=== PATIENT | male | born 1935 | race Caucasian/White ===

== ENCOUNTER 2019-12-09 11:39 | Outpatient (CLI) | payer MEDICARE, SELFPAY ==
--- NOTE | ~2019-12-09 | CT_ITS ---
EXAMINATION: CT shoulder LT wo con DATE: 12/09/2019 12:16 INDICATION: Primary osteoarthritis of the left shoulder TECHNIQUE: High resolution computed tomography (CT) of the left shoulder was performed without intrav enous contrast. Additional sagittal and coronal reconstructions were performed. Automated exposure co ntrol and iterative reconstruction technique were employed. The dose-length product was 1076.70 mGy-c m. COMPARISON: None FINDINGS: Alignment is normal. No fracture. There is moderate left acromioclavicular osteoarthritis. Severe lef t glenohumeral osteoarthritis with remodeling and mild loss of bone stock at the posterior half of th e glenoid. There is 15 degree glenoid retroversion. Moderate-sized marginal osteophytes along the inf erior aspect of the humeral head. Small marginal osteophytes about the glenoid. There is additional m ild remodeling at the superomedial aspect of the humeral head. No significant glenohumeral joint effu bennett. No asymmetric muscular atrophy of the left shoulder girdle. No pathologically enlarged left axi llary or hilar lymphadenopathy. Visualized portions of the left lung are clear. Likely benign 7 mm hy podense left thyroid nodule. Bone island at the left lateral mass of C7. Severe cervical and thoracic spondylosis. IMPRESSION: 1. Severe left glenohumeral osteoarthritis with remodeling at the posterior glenoid and superomedial aspect of the humeral head. Reviewed, dictated and finalized at location B. IMPRESSION: 1. Severe left glenohumeral osteoarthritis with remodeling at the posterior gle noid and superomedial aspect of the humeral head.
== END 2019-12-09 11:40 | disposition home or self-care (01) ==
PROVIDERS: PCP Family Medicine; Visit Provider Orthopaedic Surgery
DX: M19.012 Primary osteoarthritis, left shoulder (principal)
CPT/HCPCS: 36415; 73200; 80048; 85025; 87081; 93005

== ENCOUNTER 2019-12-09 13:49 | Outpatient (CLI) | payer MEDICARE, SELFPAY ==
--- NOTE | 2019-12-09 14:33 | ECG_ITS ---
Measurements Intervals [place] Rate: 60 P: 41 [place]: 194 QRS: -29 QRSD: 122 T: -11 QT: 407 QTc: 408 Interpretive Statements SINUS RHYTHM INTRAVENTRICULAR CONDUCTION DELAY DELAYED PRECORDIAL R/S TRANSITION BORDERLINE T WAVE ABNORMALITY- INFERIOR LEADS BASELINE ARTIFACT- I, III, AVL, AVF BORDERLINE ECG Electronically Signed On 12-09-2019 14:48:28 CDT by Julio Shabazz D.O.
[2019-12-09 14:55] LABS: Basophils Percent Auto 0.6 % (0.2-1.2); Eosinophils Absolute Auto 0.3 K/mm3 (0-0.3); Eosinophils Percent Auto 4.8 % (0-4.4); Hematocrit 41.9 % (42.0-52.0); Hemoglobin 14.4 g/dL (14.0-18.0); Immature Granulocyte Absolute 0.03 K/mm3 (0.00-0.031); Immature Granulocyte Percent A 0.5 % (0-0.5); Lymphocytes Absolute Auto 1.67 K/mm3 (0.9-3.2); Lymphocytes Percent Auto 26.5 % (18.3-44.2); Mean Corpuscular HGB Conc 34.4 g/dl (32-36); Mean Corpuscular Hemoglobin 29.7 pg (26-34); Mean Corpuscular Volume 86.4 fl (80-100); Mean Platelet Volume 11.1 fl (7.4-10.4); Monocytes Absolute Auto 0.5 K/mm3 (0.1-0.6); Monocytes Percent Auto 8.4 % (2.6-8.5); Neutrophils Absolute Auto 3.7 K/mm3 (1.3-6.7); Neutrophils Percent Auto 59.2 % (45.5-73.1); Platelet Count Result 245 k/mm3 (150-375); Red Blood Count 4.85 M/mm3 (4.6-6.20); Red Cell Distribution Width 13.2 % (11.5-14.5); White Blood Count 6.3 K/mm3 (4.5-10.0)
[2019-12-09 15:07] LABS: Anion Gap 9 mmol/L (8-16); Blood Urea Nitrogen 24 mg/dL (9-20); Calcium 9.2 mg/dL (8.4-10.2); Carbon Dioxide 28 mmol/L (22-30); Chloride 105 mmol/L (98-107); Estimated Glomerular Filt Rate > 60; Glucose 132 mg/dL (75-110); Potassium 3.6 mmol/L (3.4-5.0); Sodium 142 mmol/L (137-145)
== END 2019-12-09 13:50 | disposition home or self-care (01) ==
PROVIDERS: Anesthesiology; PCP Family Medicine; Visit Provider Orthopaedic Surgery
DX: Z01.812 Encounter for preprocedural laboratory examination (principal); Z01.810 Encounter for preprocedural cardiovascular examination; I10 Essential (primary) hypertension; M19.012 Primary osteoarthritis, left shoulder
CPT/HCPCS: 36415; 80048; 85025; 87081; 93005

== ENCOUNTER 2020-01-04 01:25 | Outpatient (CLI) | payer MEDICARE, SELFPAY ==
[2020-01-04 22:26] LABS: SARS-CoV-2 RNA PCR Negative
== END 2020-01-04 01:26 | disposition home or self-care (01) ==
LOC: ANHCOVIDDT 01:25
PROVIDERS: PCP Family Medicine; Visit Provider Orthopaedic Surgery
DX: Z01.818 Encounter for other preprocedural examination (principal); Z20.828 Contact with and (suspected) exposure to other viral communicable diseases
CPT/HCPCS: 87635; C9803; U0003

== ENCOUNTER 2020-01-07 13:04 | Inpatient (IN) | payer MEDICARE, SELFPAY ==
[2019-12-09 14:34] VITALS: BP 155/87; PULSE 69; RESP 16; TEMP 36.7; O2SAT 98; BMI 30.3
--- NOTE | 2020-01-06 12:33 | WPDANESEPPF ---
Anes - Initial Pre Proc Eval Procedure: Operation Date: 01/07/20 08:30 Proposed Procedures p Left Reverse Total Shoulder Arthroplasty - Chris Babb MD Date/Time: 01/06/20 12:33 Surgeon: Chris Babb MD Pre Op Diagnosis: OA Left Shoulder Patient Data Age: 84 Gender: M Height: 1.75 m Weight: 93.1 kg Last Vital Signs Temp 36.7 C 12/09/19 14:34 Pulse 69 12/09/19 14:34 Resp 16 12/09/19 14:34 BP 155/87 H 12/09/19 14:34 Pulse Ox 98 12/09/19 14:34 Allergies Allergy/AdvReac Type Severity Reaction Status Date / Time Penicillins Allergy Severe Rash--- Verified 01/07/20 06:42 CHILD Home Medications Medication Instructions Recorded Confirmed Type hydrochlorothiazide 12.5 mg tablet 12.5 mg PO DAILY #90 tablet 03/20/19 01/07/20 Rx lisinopril 20 mg tablet 20 mg PO DAILY #90 tablet 05/20/19 01/07/20 Rx omeprazole 20 mg capsule,delayed 20 mg PO DAILY #90 cap 06/21/19 01/07/20 Rx release amlodipine [Norvasc] 5 mg PO QPM 12/09/19 01/07/20 History aspirin 325 mg PO QPM 12/09/19 01/07/20 History atenolol 50 mg PO BID 12/09/19 01/07/20 History multivitamin,to-xpil-iprzoycm 1 tablet PO DAILY 12/09/19 01/07/20 History [Complete Multivitamin] Patient hx anesthesia problems: none Family hx anesthesia problems: none PMFSH Past Medical History Medical History (Updated 01/06/20 @ 12:34 by Vel Hinojosa MD) HTN (hypertension) Obesity Osteoarthritis of left shoulder Prostate cancer Surgical History Surgical History History of shoulder replacement (~2011) History of surgical removal of intestinal structure (~2011) Family History Family History Sibling Cerebrovascular accident Mother Family history of congestive heart failure Other Hypertension Malignant neoplasm of prostate Social History Social History Smoking status: Never smoker Alcohol intake: never Living arrangements: with family Spiritual care concerns: No Anes - Eval Final PreProcedure Day of Procedure 01/06/20 12:33 Patient weight: obese Heart: regular rate and rhythm Lungs: clear to auscultation and normal air movement Airway: Mallampati scale class II Neurological: alert and oriented Last oral intake: >/= 8 hours ASA classification: III Emergent: no Anesthetic plan: proceed Anesthesia type and monitoring: general ETT Informed Consent: The patient's anesthetic plan and its attendant risks and benefits were discussed with the patient/family/POA. Questions were solicited and answers provided to the satisfaction of the patient/family/POA.
[2020-01-07] VITALS (17 sets, daily range): BP systolic 91–139; BP diastolic 53–87; PULSE 64–97; RESP 12–20; TEMP 36.1–37.1; O2SAT 94–98
--- NOTE | ~2020-01-07 | XR_ITS ---
EXAMINATION: XR shoulder LT min 2V DATE: 01/07/2020 11:39 INDICATION: Left shoulder arthroplasty. Postop. TECHNIQUE: 3 views of left shoulder were obtained. COMPARISON: Left shoulder radiographs 09/02/2019 FINDINGS: There is a reverse [id number] total left shoulder arthroplasty in near-anatomic alignm ent. No fracture. There is severe osteoarthritis of acromioclavicular joint. There is gas in the soft tissues, consistent with recent surgery. IMPRESSION: 1. Total left shoulder arthroplasty in near-anatomic alignment. Reviewed, dictated and finalized at location B. US PERFORMER
[2020-01-07] MEDS: LACTATED RINGERS 1,000 ML 30 ML IV CONT ×2 (07:08→11:18)
[2020-01-07] MEDS: KETOROLAC 15 MG/ML VIAL (*BKC) IV PUSH (07:10)
[2020-01-07] MEDS: ACETAMINOPHEN 500 MG TABLET 1000 MG PO (07:10)
[2020-01-07] MEDS: TRANEXAMIC ACID 1,000MG/ISO100 1,000 MG/100 ML BAG 200 MG IVPB (07:45)
--- NOTE | 2020-01-07 07:54 | WPDHPUPDATE1 ---
History and Physical Update Update Date/Time: 01/07/20 07:54 History and Physical has been reviewed, including an updated exam of the patient. There are NO changes in the patient's condition. Risks, benefits, and alternatives have been discussed and questions answered. Patient agrees to proceed with procedure.
--- NOTE | 2020-01-07 08:20 | WPDANESPNB ---
Anes - Peripheral Nerve Block Date/Time: 01/07/20 08:20 I have discussed with the patient/family/POA the placement of a peripheral nerve block for post-operative pain management, including associated risks, benefits, complications, and side effects. Alternative methods of post-operative analgesia were detailed. Questions were solicited and answers provided to the satisfaction of the patient/family/POA. Time-Out: A pre-procedural Time-Out was completed immediately before starting the procedure and confirmed: Patient Identification, Site, Procedure, Patient Position and the Availability of Requisite Equipment. Clinical Indications: Acute post-operative pain management requested by the operative surgeon. Nerve Block Insertion Note Anes-nerve block: supraclavicular left Patient position: supine Skin prep: chlorhexidine Needle: 22 gauge, stimulating, insulated echogenic needle. Needle length: 80 mm Technique: ultrasound (in plane) Injectate: bupivacaine 0.25% with epi 5 mcg/ml (20cc) Observations: tolerated well Complications: none Procedure start time:: 820 Procedure end time:: 825
[2020-01-07] MEDS: CLINDAMYCIN 900 MG/D5W 50 ML 900 MG/50 ML PIGGYBACK 50 MG IVPB (08:39)
[2020-01-07] MEDS: VANCOMYCIN HCL 1,000 MG VIAL 1000 MG TOPICAL (09:16)
--- NOTE | 2020-01-07 12:14 | SUR.PHASEI ---
[id number] sbar faxed floor notified
--- NOTE | 2020-01-07 13:15 | ADMGEN ---
This patient, Angelo Hickman, was admitted to Medical Room 243-01. Patient/family oriented to hospital policies and general routines including ID bracelet, bed and alarms, visiting hours, pain management, procedures, bathroom and other care routines, personal items, smoking policy, room service/diet, and visiting hours. Information on how to activate the Rapid Response Team has been discussed. Patient/Family are encouraged to report perceived risks to care and to ask questions if they do not understand what they are told or what they should do.
[2020-01-07] MEDS: CLINDAMYCIN 600 MG/NS 50 ML 600 MG/50 ML PIGGYBACK 100 MG IVPB ×2 (14:14→20:42)
--- NOTE | 2020-01-07 14:29 | PM.DS ---
DS: Admitting Diagnosis Admitting Diagnosis Admitting Diagnosis: OA Left Shoulder DS: Discharge Diagnosis Discharge Diagnosis (1) Status post total shoulder arthroplasty: Code(s): Z96.619 - Presence of unspecified artificial shoulder joint Status: Acute DS: Summary Hospital Course Reason for hospitalization: Total shoulder arthroplasty. Hospital Course: Tolerated surgery well. Progressed appropriately with therapy. Status at Discharge Functional status at discharge: independent ambulation Overall status at discharge: patient is progressing back to baseline Time Spent with Patient Time attestation: Total time spent providing and/or coordinating discharge services: Exam Const: General: no acute distress Resp: Effort & Inspection: normal respiratory effort Skin: Other: Wound healing well. Mepilex dressing intact. No hematoma. Scant drainage. Sling applied appropriately. Deltoid muscle fires. Axillary nerve sensation intact. 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 No edema. radial pulse palpable. Neuro: Motor exam (neuro): 5/5 motor strength present throughout Sensory Exam: normal sensation Psych: Mental Status: mental status grossly normal Speech and movement: Normal speech and movement present Discharge Plan Discharge Attending physician on discharge: Chris Babb Consulting providers: Shannan Skelton ; Justa Gant ; Narinder Chavarria V. Discharging Clinician: Chris Babb Patient Disposition: Home, Self-Care Activity: may shower Diet: as tolerated Wound Care Instructions: follow printed instructions Discharge Instructions: See instruction sheet. Patient Instructions: Antibiotic Form, Pain Management (DC), Joint Replacement Surgery (DC), Shoulder Arthroplasty (DC) Stand Alone Forms: General Discharge Information Follow-up/Referrals: Chris Babb MD [Physician] - Discharge Medications: New oxycodone-acetaminophen 5-325 mg tablet 1 - 2 tablet PO Q4H MDD 8 tablets PRN (Reason: pain) Qty: 30 RF: 0 Continued amlodipine [Norvasc] 5 mg tablet 5 mg PO QPM RF: 0 atenolol 50 mg tablet 50 mg PO BID RF: 0 aspirin 325 mg Tablet 325 mg PO QPM RF: 0 Complete Multivitamin Tablet 1 tablet PO DAILY RF: 0 hydrochlorothiazide 12.5 mg tablet 12.5 mg PO DAILY Qty: 90 RF: 3 lisinopril 20 mg tablet 20 mg PO DAILY Qty: 90 RF: 3 omeprazole 20 mg capsule,delayed release(DR/EC) 20 mg PO DAILY Qty: 90 RF: 3 Date of admission: 01/07/20 13:04 Primary Care Provider: Jose Alfredo Acosta Admitting Provider: Chris Babb Attending physician on admission: Chris Babb Quality VTE Prophylaxis VTE prophylaxis: mechanical ordered
--- NOTE | 2020-01-07 15:37 | PM.IMCN ---
Assessment and Plan Assessment and plan (1) Status post total shoulder arthroplasty: Code(s): Z96.619 - Presence of unspecified artificial shoulder joint Status: Acute Assessment and Plan: care per Ortho. Postop care per Ortho. The patient had a nerve block and is doing well. DVT prophylaxis per ortho. The patient has bilateral SCDs. And bilateral TEDs. The patient had his right shoulder surgery sometime back and did very well with that I believe is 2011. Patient has based on going home tomorrow. (2) HTN (hypertension): Code(s): I10 - Essential (primary) hypertension Status: Chronic Assessment and Plan: Continue with Norvasc, atenolol, lisinopril, and atenolol. Check BMP in the morning. (3) Osteoarthritis of left shoulder: Qualifiers: Osteoarthritis type: primary Qualified Code(s): M19.012 - Primary osteoarthritis, left shoulder Code(s): M19.012 - Primary osteoarthritis, left shoulder Status: Acute Assessment and Plan: Care per Ortho. HPI Data of Consult Consult date: 01/07/20 Requesting Physician: Chris Babb MD Primary Care Provider: Jose Alfredo Acosta MD Consult Narrative Narrative: Angelo Hickman is a 84 year old male Who has severe degenerative joint disease. The patient in the past has had his right shoulder replaced without any difficulty. The patient went to see Dr. Babb for an evaluation of his left shoulder. He has been having some discomfort in his left shoulder and having difficulty with daily living. The patient had painful passive elevation at 110?. External rotation was 30?. Patient has severe [id number]-[id number] and it was detected that the patient needed to undergo Left total shoulder arthroplasty. the patient apparently is doing well and is up walking in the [place]. Please see operative note. The patient had a nerve block in the supraclavicular left. He is not having any discomfort at this time. I think orthopedic surgery for this consultation. Date of service is 01/06/2030 Review of Systems Review of Systems: All systems reviewed & are unremarkable except as noted in HPI and below Constitutional: Constitutional: Reports as per HPI and Reports no additional constitutional complaints Eyes: Eyes: Reports as per HPI and Reports no additional eye complaints ENT: Reports system reviewed and no additional complaints, except as documented and Reports Normal hearing present Cardiovascular: Cardiovascular: Reports no additional cardiovascular complaints Respiratory: Respiratory: Reports no additional respiratory complaints and Reports no additional respiratory complaints Gastrointestinal: Gastrointestinal: Reports as per HPI and Reports no additional gastrointestinal complaints Musculoskeletal: Musculoskeletal: Reports no additional musculoskeletal complaints Integumentary/Breasts: Skin/Breast: Reports system reviewed and no additional complaints, except as docu and Reports as per HPI Neurologic: Reports system reviewed and no additional complaints, except as documented, Reports as per HPI and Reports Normal hearing present Psychiatric: Psychiatric: Reports no additional psychiatric complaints and Reports as per HPI Endocrine: Endocrine: Reports no additional endocrine complaints Hematologic/Lymphatic: Hematologic/Lymphatic: Reports no additional hematologic/lymphatic complaints Allergic/Immunologic: Allergic/Immunologic: Reports no additional allergic/immunologic complaints [facility] Past Medical History Medical History (Updated 01/07/20 @ 15:45 by Justa Gant NP) HTN (hypertension) Obesity Osteoarthritis of left shoulder Prostate cancer Surgical History Surgical History (Updated 01/07/20 @ 15:46 by Justa Gant NP) History of rectal polypectomy History of shoulder replacement (~2011) right shoulder History of surgical removal of intestinal structure (~2011) Status post total shoulder ar
[2020-01-07] MEDS: ASPIRIN 325 MG TABLET PO (17:27)
[2020-01-07] MEDS: atenoloL 50 MG TABLET PO (17:27)
[2020-01-07] MEDS: DOCUSATE SODIUM 100 MG CAPSULE PO (17:27)
[2020-01-07] MEDS: amLODIPine BESYLATE 5 MG TABLET PO (17:28)
[2020-01-08 03:00] VITALS: BP 131/74; PULSE 74; RESP 20; TEMP 36.5; O2SAT 93
[2020-01-08] MEDS: oxyCODONE HCL (*CRX) 5 MG TAB IR PO ×2 (04:05→11:37)
[2020-01-08] MEDS: CLINDAMYCIN 600 MG/NS 50 ML 600 MG/50 ML PIGGYBACK 100 MG IVPB (05:22)
[2020-01-08 05:28] LABS: Basophils Percent Auto 0.1 % (0.2-1.2); Hematocrit 35.8 % (42.0-52.0); Hemoglobin 12.3 g/dL (14.0-18.0); Immature Granulocyte Absolute 0.09 K/mm3 (0.00-0.031); Immature Granulocyte Percent A 0.6 % (0-0.5); Lymphocytes Absolute Auto 0.98 K/mm3 (0.9-3.2); Lymphocytes Percent Auto 6.8 % (18.3-44.2); Mean Corpuscular HGB Conc 34.4 g/dl (32-36); Mean Corpuscular Hemoglobin 29.2 pg (26-34); Mean Platelet Volume 11.1 fl (7.4-10.4); Monocytes Absolute Auto 1.3 K/mm3 (0.1-0.6); Monocytes Percent Auto 9.1 % (2.6-8.5); Neutrophils Percent Auto 83.4 % (45.5-73.1); Platelet Count Result 178 k/mm3 (150-375); Red Blood Count 4.21 M/mm3 (4.6-6.20); Red Cell Distribution Width 12.8 % (11.5-14.5); White Blood Count 14.4 K/mm3 (4.5-10.0)
[2020-01-08 05:46] LABS: Alanine Aminotransferase 26 U/L (4-50); Albumin Level 3.6 g/dL (3.5-5.1); Alkaline Phosphatase 45 U/L (38-126); Anion Gap 8 mmol/L (8-16); Aspartate Amino Transferase 27 U/L (17-59); Bilirubin,Total 1.1 mg/dL (0.2-1.3); Blood Urea Nitrogen 29 mg/dL (9-20); Calcium 8.7 mg/dL (8.4-10.2); Carbon Dioxide 27 mmol/L (22-30); Chloride 105 mmol/L (98-107); Estimated CRCL calculation 44 ml/min; Estimated Glomerular Filt Rate > 60; Glucose 132 mg/dL (75-110); Magnesium 1.8 mg/dL (1.6-2.3); Potassium 3.9 mmol/L (3.4-5.0); Sodium 140 mmol/L (137-145)
--- NOTE | 2020-01-08 07:48 | WPDANESPN ---
Anes - Prog Note Post-Op Date/Time: 01/08/20 07:48 Cardiovascular status: normal Respiratory status: normal Airway patency: baseline Mental status: baseline Post-Op hydration status: normal Vital Signs: Last Vital Signs Temp 36.5 C 01/08/20 03:00 Pulse 74 01/08/20 03:00 Resp 20 01/08/20 03:00 BP 131/74 01/08/20 03:00 Pulse Ox 93 01/08/20 03:00 Pain Score (VAS): 3 I/O: Intake & Output 01/07/20 01/07/20 01/08/20 15:59 23:59 07:59 Intake Total 600 790 470 Output Total 250 800 Balance 600 540 -330 Laboratory Tests 01/08/20 05:00 01/08/20 05:00 01/07/20 01/08/20 01/08/20 07:00 05:00 05:00 WBC 14.4 H RBC 4.21 L Hgb 12.3 L Hct 35.8 L MCV 85.0 MCH 29.2 MCHC 34.4 RDW 12.8 Plt Count 178 MPV 11.1 H Immature Gran % (Auto) 0.6 H Neut % (Auto) 83.4 H Lymph % (Auto) 6.8 L [place] % (Auto) 9.1 H Eos % (Auto) 0.0 Baso % (Auto) 0.1 L Lymph # (Auto) 0.98 [place] # (Auto) 1.3 H Eos # (Auto) 0.0 Baso # (Auto) 0.0 Abs Immat Gran (auto) 0.09 H Absolute Neuts (auto) 12.0 H Absolute Nucleated RBC 0.0 Nucleated RBC % 0.0 Sodium 140 Potassium 3.9 Chloride 105 Carbon Dioxide 27 Anion Gap 8 BUN 29 H Creatinine 1.10 Estim Creat Clear Calc 44 Estimated GFR > 60 Glucose 132 H Calcium 8.7 Magnesium 1.8 Total Bilirubin 1.1 AST 27 ALT 26 Alkaline Phosphatase 45 Total Protein 6.0 L Albumin 3.6 Blood Type A Positive Antibody Screen Negative Post-procedural complaints: none Patient Feedback: Patient satisfied with anesthetic care.
[2020-01-08 08:04] VITALS: PULSE 64
[2020-01-08] MEDS: DOCUSATE SODIUM 100 MG CAPSULE PO (08:04)
[2020-01-08] MEDS: atenoloL 50 MG TABLET PO (08:04)
[2020-01-08] MEDS: THERAPEUTIC MULTIVITAMINS/MINERALS TAB (*BKC) 1 TABLET PO (08:04)
[2020-01-08] MEDS: PANTOPRAZOLE 40 MG TABLET PO (08:04)
[2020-01-08] MEDS: hydroCHLOROthiazide 12.5 MG CAPSULE PO (08:06)
[2020-01-08] MEDS: lisinopriL 20 MG TABLET PO (08:06)
[2020-01-08 08:14] VITALS: O2SAT 96
[2020-01-08 10:00] VITALS: BP 104/63; PULSE 74; RESP 20; TEMP 36.5; O2SAT 96
--- NOTE | 2020-01-08 11:48 | PM.PROC ---
Procedure Note - Detailed Date of procedure: 01/07/20 Pre-op diagnosis: OA Left Shoulder Post-op diagnosis: same Procedure performed: Reverse total shoulder arthroplasty. Biceps tenodesis. Description of procedure: Severe glenoid erosion and rotator cuff disease was present. Bone stature was a very large. The 29 mm base plate fit very well. Implants: [employer]/ [employer], Aequalis reversed glenoid base plate 29mm, reversed insert 6mm thickness; Aequalis Ascend Flex humeral stem size 3B. Aequalis Reversed II glenoid sphere 42 diameter; Reversed tray high offset at 12 o'clock. Anesthesia: GETA and regional Surgeon: Chris Babb MD Estimated blood loss (mL): 200 Drains: No Complications: None Condition: stable Disposition: PACU Findings: OPERATIVE DETAILS: The patient was given an interscalene block in the preoperative area. Preoperative antibiotics were given. The patient was transferred to the operating room and a general anesthetic was administered. The beach chair position was used at 45 degrees. All bony prominences were padded. The head was carefully stabilized [facility]. A sterile prep and drape was performed in the usual manner with ChloraPrep. A longitudinal incision was created at the anterior shoulder just lateral to the deltopectoral interval. Careful dissection was performed to expose the interval and protect the cephalic vein. The vein was retracted medially. The upper border of the pectoralis was released. Anterior circumflex vessel branches were suture ligated. The biceps was tenotomized and later tenodesed. A subscapularis tenotomy was performed. The inferior capsule was released, exposing the humeral head. Osteophytes were removed. Care was taken to stay on bone to protect the axillary nerve. The anatomic head cut was taken with the oscillating saw. Sounding and broaching was performed. The neck anteversion and inclination were carefully assessed. The cut protector was placed, and attention was turned to the glenoid. Retractors were placed. Releases were carried out for exposure. The subscapularis was mobilized, the inferior capsule and long head of triceps released, and the superior and middle glenohumeral ligaments released as well. Labral tissue was resected as needed. The sizing template was used to assess the baseplate position low on the glenoid. A guide pin was placed. Minimal reaming was used to accomplish a flat surface without violating the subchondral bone. Version was corrected according to preoperative templating. The post hole was drilled. The real component was impacted into position. Supplemental compression and locking screws were placed. The glenosphere was impacted into the taper, and secured with the locking screw. The humeral components were trialed. The real humeral stem and tray, and insert were impacted into position. The shoulder was copiously irrigated periodically with pulsatile lavage. The shoulder was reduced and stability confirmed. The biceps tenodesis was incorporated with the pectoralis tendon repair. The deltopectoral space was reapproximated with number 2 Vicryl. The remained tissue was closed with 0 Quill and 2-0 Quill running suture and steri-strips. A sterile dressing and shoulder immobilizer was placed. The patient was transferred to the recovery room.
--- NOTE | 2020-01-08 12:09 | PCOTNOTE ---
On 01/08/20, the student, Cristina Ndiaye, provided care and completed [facility] documentation on this patient. I have reviewed the student's documentation and agree with the findings.
--- NOTE | 2020-01-08 12:50 | PM.IMPN ---
Progress Note: A&P Assessment and Plan (1) Status post total shoulder arthroplasty: Code(s): Z96.619 - Presence of unspecified artificial shoulder joint Status: Acute Assessment and Plan: care per Ortho. Postop care per Ortho. The patient had a nerve block and is doing well. DVT prophylaxis per ortho. The patient has bilateral SCDs. And bilateral TEDs. The patient had his right shoulder surgery sometime back and did very well with that I believe is 2011. Patient has based on going home tomorrow. 01/08/20 12:50 patient is 84-year-old male with history of severe osteoarthritis of the left shoulder conservative management was failing patient was seen by his surgeon and patient had a reverse total shoulder arthroplasty and biceps tenodesis on 01/06, which patient tolerated, today patient states he had physical therapy and does complaint of pain in his left shoulder otherwise is doing fine, he denies any chest pain shortness of breath palpitation fever or chills, most likely patient will be discharged today (2) HTN (hypertension): Code(s): I10 - Essential (primary) hypertension Status: Chronic Assessment and Plan: Continue with Norvasc, atenolol, lisinopril, and atenolol. patient blood pressure is soft, patient has no complaint chest pain shortness of breath or dizziness. (3) Osteoarthritis of left shoulder: Qualifiers: Osteoarthritis type: primary Qualified Code(s): M19.012 - Primary osteoarthritis, left shoulder Code(s): M19.012 - Primary osteoarthritis, left shoulder Status: Acute Assessment and Plan: Care per Ortho. Subjective Date/time seen: 01/08/20 12:50 patient is 84-year-old male with history of severe osteoarthritis of the left shoulder conservative management was failing patient was seen by his surgeon and patient had a reverse total shoulder arthroplasty and biceps tenodesis on 01/06, which patient tolerated, today patient states he had physical therapy and does complaint of pain in his left shoulder otherwise is doing fine, he denies any chest pain shortness of breath palpitation fever or chills, most likely patient will be discharged today Review of Systems Review of Systems: All systems reviewed & are unremarkable except as noted in HPI and below Exam Narrative: Exam Narrative: Patient is comfortable, NAD HEENT: eyes are clear and none icteric LUNGS:CTA HEART: RR S1S2 ABD: BS+, Soft and nontender Lower extremities: no edema MS: left arm in the sling SKIN: nonjaundiced Neuro: grossly intact. Objective Data Vital Signs Vital Signs: Vital Signs - 24 hr 01/07/20 13:02 01/07/20 13:15 01/07/20 13:30 Temperature 97.3 F L 97.9 F Pulse Rate 76 77 76 Respiratory Rate 16 16 16 Blood Pressure 125/79 133/82 127/77 Pulse Oximetry 96 97 97 01/07/20 14:00 01/07/20 15:00 01/07/20 17:27 Temperature 97.5 F L 97.7 F Pulse Rate 73 87 97 Respiratory Rate 16 16 Blood Pressure 135/83 138/87 Pulse Oximetry 96 97 01/07/20 18:00 01/07/20 19:00 01/07/20 23:00 Temperature 97.7 F 97.6 F 97.6 F Pulse Rate 90 87 87 Respiratory Rate 16 20 20 Blood Pressure 119/76 123/85 123/85 Pulse Oximetry 96 96 96 01/08/20 03:00 01/08/20 08:04 01/08/20 08:14 Temperature 97.7 F Pulse Rate 74 64 Respiratory Rate 20 Blood Pressure 131/74 Pulse Oximetry 93 96 01/08/20 10:00 Temperature 97.7 F Pulse Rate 74 Respiratory Rate 20 Blood Pressure 104/63 Pulse Oximetry 96 Intake/Output Intake/Output: Intake & Output 01/05/20 01/06/20 01/07/20 01/08/20 23:59 23:59 23:59 23:59 Intake Total 1390 710 Output Total 250 800 Balance 1140 -90 Meds/Results Radiology Results: ITS Impressions Shoulder X-Ray 01/07/20 11:42 IMPRESSION: 1. Total left shoulder arthroplasty in near-anatomic alignment. Labs Labs: Laboratory Results - last 24 hr 01/08/20 01/08/20 05:00 05:00 WBC 14.4 H RBC 4.21
== END 2020-01-08 12:02 | disposition home or self-care (01) | DRG 483 ==
LOC: ANH2MED 13:27
PROVIDERS: Nurse Practitioner; Admitting Provider Orthopaedic Surgery; PCP Family Medicine; Visit Provider Orthopaedic Surgery
PROC: 0RRK00Z Replacement of Left Shoulder Joint with Reverse Ball and Socket Synthetic Substitute, Open Approach (ICD-10-PCS; CPT 23472; principal; 2020-01-07 08:30)
DX: M19.012 Primary osteoarthritis, left shoulder (principal); G89.18 Other acute postprocedural pain; I10 Essential (primary) hypertension; E66.9 Obesity, unspecified; Z68.30 Body mass index [BMI] 30.0-30.9, adult; Z96.611 Presence of right artificial shoulder joint; Z79.82 Long term (current) use of aspirin; Z79.899 Other long term (current) drug therapy; Z85.46 Personal history of malignant neoplasm of prostate; Z87.891 Personal history of nicotine dependence; Z88.0 Allergy status to penicillin
CPT/HCPCS: 36415; 73030; 80053; 83735; 85025; 86850; 86900; 86901; 97110; 97161; 97165; 97530; A4565; A9270; C1776; J0131; J0171; J0330; J1100; J1885; J2250; J2270; J2405; J2704; J2795; J3010; J3370; J7120

== ENCOUNTER 2020-02-17 09:40 | Inpatient (IN) | payer MEDICARE, SELFPAY ==
[2020-02-17] VITALS (13 sets, daily range): BP systolic 115–145; BP diastolic 68–86; PULSE 54–120; RESP 18–30; TEMP 36.1–37.5; O2SAT 85–98; BMI 29.0
--- NOTE | ~2020-02-17 | XR_ITS ---
EXAMINATION: XR chest 1V portable EXAM DATE: 02/17/2020 10:24 INDICATION: COVID +, hypoxia. Cough and weakness. TECHNIQUE: Portable AP frontal chest x-ray was obtained. Comparison is made to prior examination from 11/03/2009. FINDINGS: Small amount of ill-defined bilateral airspace disease suspected probably groundglass opaci ties from acute infectious process. No pneumothorax or pleural effusion. Bilateral shoulder replaceme nts. IMPRESSION: Suspect small amount of bilateral ill-defined acute airspace disease. Clinical correlatio n. Reviewed, dictated and finalized at location B. 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 Clinical correlation.
--- NOTE | ~2020-02-17 | XR_ITS ---
EXAMINATION: XR chest 1V portable EXAM DATE: 02/21/2020 05:57 INDICATION: COVID. Hypertension. TECHNIQUE: Portable AP frontal chest x-ray was obtained. Comparison is made to prior examination from 02/17/2020. FINDINGS: There is been increase in amount of bilateral acute airspace disease with sparing of the le ft upper lobe. Probably some progression in opacities from COVID pneumonia. Bilateral shoulder replac ements. No pneumothorax or pleural effusion. The cardiomediastinal silhouette is prominent but magnif ied on this AP technique. IMPRESSION: Progression in acute airspace disease, COVID pneumonia. Reviewed, dictated and finalized at location A. IO TECHNICIAN
--- NOTE | 2020-02-17 09:59 | ECG_ITS ---
Measurements Intervals [place] Rate: 116 P: 11 [place]: 180 QRS: -53 QRSD: 100 T: 4 QT: 316 QTc: 440 Interpretive Statements SINUS TACHYCARDIA LEFT ANTERIOR FASCICULAR BLOCK BORDERLINE T WAVE ABNORMALITY- INFERIOR LEADS BASELINE ARTIFACT- I, II, III, AVR, AVL, AVF, V3-V4 ABNORMAL ECG Electronically Signed On 02-17-2020 10:49:26 RELIGIOUS EDUCATION COORDINATOR by Julio Shabazz D.O.
[2020-02-17 10:11] LABS: Alveolar/Arterial O2 Gradient 227.3 mmHg; Base Excess ABG -2.9 mEq/l (+/-2.0); Carboxyhemoglobin 0.3 % THb (0-2.0); Fractional Inspired Oxygen 44 %; HCO3 ABG 18.3 mEq/l (22.0-26.0); Methemoglobin ABG 0.2 %THb (0-1.5); Oxygen Content ABG 17.3 %vol (16.0-22.0); Oxygen Saturation ABG 93.7 % (95.0-100.0); Oxyhemoglobin 92.3 % THb (90.0-100.0); PO2 ABG 59.9 mmHg (80.0-100.0); PO2 FiO2 Ratio Arterial Blood 1.36 %; Reduced Hemoglobin 7.2 %THb (0-5.0); Total Hemoglobin 13.3 g/dL (12.0-18.0)
[2020-02-17 10:12] LABS: pH ABG 7.512 (7.350-7.450)
[2020-02-17 10:13] LABS: Device NASAL CANNULA; PCO2 ABG 23.3 mmHg (35.0-45.0); Site Drawn LEFT BRACHIAL
--- NOTE | 2020-02-17 10:13 | ED.URI ---
HPI - URI/Sore Throat General Chief Complaint: Upper Respiratory Infection Stated Complaint: COVID +, chills Source: patient Mode of arrival: EMS Limitations: no limitations History of Present Illness HPI Narrative: This is a 84 year old male that presents to the ER for cold symptoms x 10 days. Reports fever, cough, congestion, sore throat. Also reports dry mouth and feeling dehydrated. Was diagnosed with COVID about a week ago. Denies chest pain or shortness of breath. Related Data Home Medications Medication Instructions Recorded Confirmed Complete Multivitamin 1 tablet PO DAILY 12/09/19 01/07/20 amlodipine [Norvasc] 5 mg PO QPM 12/09/19 01/07/20 aspirin 325 mg PO QPM 12/09/19 01/07/20 atenolol 50 mg PO BID 12/09/19 01/07/20 Allergies Allergy/AdvReac Type Severity Reaction Status Date / Time Penicillins Allergy Severe Rash--- Verified 02/17/20 09:48 CHILD Review of Systems Review of Systems: Narrative: CONSTITUTIONAL: Reports fever ENT: Reports rhinorrhea, congestion, sore throat CARDIOVASCULAR: Denies chest pain, or edema. RESPIRATORY: Reports cough. Denies dyspnea. 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 She is a durable power trial attorney for healthcare. The patient is a full code. The patient has 2 children. 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 Patient said he smoked as a teenager but that was it. No alcohol marijuana or illicit drugs. Smoking status: Former smoker Tobacco type: cigarettes Alcohol intake: never Substance use: never Gender identity (if verbalized by the patient): Male Spiritual care concerns: No Exam Narrative: Exam Narrative: GENERAL: Elderly, well-nourished, and in no acute distress. HEAD: Normocephalic, atraumatic. EYES: EOMI. ENT: Nares clear, no rhinorrhea or epistaxis. Mucous membranes dry. Oropharynx without tonsillar hypertrophy exudate or other lesions. Bilateral TMs pearly morales non-bulging NECK: Supple. No adenopathy or masses. CHEST: Tachypneic. Rales in the lower lobes. No respiratory distress. No wheezes or rhonchi HEART: Regular rate and rhythm. No murmur heard. Normal peripheral pulses. EXTREMITIES: Normal range of motion. No edema. SKIN: Warm, dry, no rash. NEURO: No focal deficits. Alert and oriented x3. PSYCH: Normal mood and affect Course Consultations Consultation #1: Spoke with hospitalist about patient and work-up who accepts admission Date: 02/17/20 Time: 12:54 Vital Signs Vital signs: Vital Signs Temperature 99.5 F 02/17/20 09:39 Pulse Rate 120 H 02/17/20 09:39 Respiratory Rate 30 H 02/17/20 09:39 Blood Pressure 128/68 02/17/20 09:39 Pulse Oximetry 85 L 02/17/20 09:39 Temperature 99.5 F 02/17/20 09:39 Pulse Rate 108 H 02/17/20 12:40 Respiratory Rate 22 H 02/17/20 12:40 Blood Pressure 128/73 02/17/20 12:40 Pulse Oximetry 95 02/17/20 12:40 MDM - URI/Sore Throat MDM Narrative Medical decision making narrative: Patient presents the emergency department for cold symptoms x10 days. Tested positive for coronavir
[2020-02-17] MEDS: DEXAMETHASONE SOD PHOS INJ 4 MG/ML VIAL 6 MG IV PUSH (10:22)
[2020-02-17] MEDS: SODIUM CHLORIDE 0.9% IV 1,000 ML 999 ML IV CONT (10:22)
[2020-02-17 10:40] LABS: Basophils Percent Auto 0.1 % (0.2-1.2); Hemoglobin 12.9 g/dL (14.0-18.0); Immature Granulocyte Absolute 0.14 K/mm3 (0.00-0.031); Immature Granulocyte Percent A 1.5 % (0-0.5); Lymphocytes Percent Auto 6.6 % (18.3-44.2); Mean Corpuscular HGB Conc 34.9 g/dl (32-36); Mean Corpuscular Hemoglobin 28.7 pg (26-34); Mean Corpuscular Volume 82.4 fl (80-100); Mean Platelet Volume 10.6 fl (7.4-10.4); Monocytes Absolute Auto 0.3 K/mm3 (0.1-0.6); Monocytes Percent Auto 3.4 % (2.6-8.5); Neutrophils Absolute Auto 8.1 K/mm3 (1.3-6.7); Neutrophils Percent Auto 88.4 % (45.5-73.1); Platelet Count Result 195 k/mm3 (150-375); Red Blood Count 4.49 M/mm3 (4.6-6.20); Red Cell Distribution Width 13.7 % (11.5-14.5); White Blood Count 9.2 K/mm3 (4.5-10.0)
[2020-02-17 10:48] LABS: Lactic Acid Reflex 3.3 mmol/L (0.7-2.1)
[2020-02-17 11:01] LABS: Alanine Aminotransferase 38 U/L (4-50); Albumin Level 3.8 g/dL (3.5-5.1); Alkaline Phosphatase 57 U/L (38-126); Anion Gap 10 mmol/L (8-16); Aspartate Amino Transferase 58 U/L (17-59); Bilirubin,Total 0.9 mg/dL (0.2-1.3); Blood Urea Nitrogen 33 mg/dL (9-20); Calcium 8.8 mg/dL (8.4-10.2); Carbon Dioxide 26 mmol/L (22-30); Chloride 101 mmol/L (98-107); Estimated CRCL calculation 40 ml/min; Estimated Glomerular Filt Rate 58; Glucose 139 mg/dL (75-110); Lactate Dehydrogenase 818 U/L (313-618); Potassium 3.5 mmol/L (3.4-5.0); Sodium 137 mmol/L (137-145)
[2020-02-17 11:05] LABS: CRP 18.4 mg/dL (<1.0)
[2020-02-17 13:31] LABS: Reflex Lactic Acid Yes or No Add Lactic
[2020-02-17] MEDS: REMDESIVIR 200 MG/NS 250 ML 200 MG/250 ML BAG 250 MG IVPB (13:31)
--- NOTE | 2020-02-17 13:50 | ADMGEN ---
This patient, Angelo Hickman, was admitted to 3 [facility] Surg Room 332-01. Patient/family oriented to hospital policies and general routines including ID bracelet, bed and alarms, visiting hours, pain management, procedures, bathroom and other care routines, personal items, smoking policy, room service/diet, and visiting hours. Placed on telemetry per MD orders, reviewed plan of care. and allowed to same room. Information on how to activate the Rapid Response Team has been discussed. Patient/Family are encouraged to report perceived risks to care and to ask questions if they do not understand what they are told or what they should do.
[2020-02-17 14:24] LABS: Lactic Acid 1.3 mmol/L (0.7-2.1)
--- NOTE | 2020-02-17 16:56 | PM.IMHP ---
H&P: HPI History of Present Illness Date/Time: 02/17/20 16:56 Chief Complaint: Shortness of breath Narrative: Angelo Hickman is a 84 year old male who was having cold symptoms greater than 10 days ago. His and friend tested positive for COVID. Patient has had some nasal congestion and sore throat. Also has a dry mouth and feeling dehydrated. The patient was diagnosed with COVID approximately week ago. Become more short of breath. Patient's pulse ox was noted to be 85%. He was placed on 6 L per nasal cannula and came up to 95%. The patient was started on Decadron and REMdesivir. pH was 7.51 to pCO2 was 23.3. Patient is being admitted to inpatient on the date of service of 02/17/2020. Review of Systems Review of Systems: All systems reviewed & are unremarkable except as noted in HPI and below Constitutional: Constitutional: Reports as per HPI and Reports no additional constitutional complaints Eyes: Eyes: Reports as per HPI and Reports no additional eye complaints ENT: Reports system reviewed and no additional complaints, except as documented and Reports Normal hearing present Cardiovascular: Cardiovascular: Reports no additional cardiovascular complaints Respiratory: Respiratory: Reports no additional respiratory complaints and Reports no additional respiratory complaints Gastrointestinal: Gastrointestinal: Reports as per HPI and Reports no additional gastrointestinal complaints Musculoskeletal: Musculoskeletal: Reports no additional musculoskeletal complaints Integumentary/Breasts: Skin/Breast: Reports system reviewed and no additional complaints, except as docu and Reports as per HPI Neurologic: Reports system reviewed and no additional complaints, except as documented, Reports as per HPI and Reports Normal hearing present Psychiatric: Psychiatric: Reports no additional psychiatric complaints and Reports as per HPI Endocrine: Endocrine: Reports no additional endocrine complaints Hematologic/Lymphatic: Hematologic/Lymphatic: Reports no additional hematologic/lymphatic complaints Allergic/Immunologic: Allergic/Immunologic: Reports no additional allergic/immunologic complaints FORMERLY [facility], [facility]–1983 Past Medical History Medical History (Updated 02/17/20 @ 12:52 by Cristina Hernandez PA-C) HTN (hypertension) Obesity Osteoarthritis of left shoulder Prostate cancer Surgical History Surgical History (Updated 02/17/20 @ 17:00 by Justa Gant NP) H/O bilateral cataract extraction History of rectal polypectomy History of shoulder replacement (~2011) right shoulder History of surgical removal of intestinal structure (~2011) 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 She is a durable power employee benefits attorney for healthcare. The patient is a full code. The patient has 2 children. 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 Patient said he smoked as a teenager but that was it. No alcohol marijuana or illicit drugs. Smoking status: Never smoker Tobacco type: cigarettes Alcohol intake: never Substance use: never Gender identity (if verbalized by the patient): Male Sexual Orientation (if Verbalized by the Patient): Straight or Heterosexual Spiritual care concerns: No Meds Home Medications and Allergies Home Medications Medication Instructions Recorded Confirmed Type hydrochlorothiazide 12.5 mg tablet 12.5 mg PO DAILY #90 tablet 03/20/19 02/17/20 Rx lisinopril 20 mg tablet 20 mg PO DAILY #90 tablet 05/20/19 02/17/20 Rx omeprazole 20 mg capsule,delayed 20 mg PO DAILY #90 cap 0
[2020-02-17] MEDS: ASPIRIN 325 MG TABLET PO (18:49)
[2020-02-17] MEDS: amLODIPine BESYLATE 5 MG TABLET PO (18:49)
[2020-02-17] MEDS: atenoloL 50 MG TABLET PO (20:25)
[2020-02-18] VITALS (7 sets, daily range): BP systolic 117–132; BP diastolic 69–84; PULSE 62–72; RESP 16–20; TEMP 36.1–36.9; O2SAT 93–97
[2020-02-18 06:42] LABS: Basophils Percent Auto 0.2 % (0.2-1.2); Hematocrit 36.2 % (42.0-52.0); Hemoglobin 12.2 g/dL (14.0-18.0); Immature Granulocyte Absolute 0.06 K/mm3 (0.00-0.031); Immature Granulocyte Percent A 0.9 % (0-0.5); Lymphocytes Absolute Auto 0.56 K/mm3 (0.9-3.2); Lymphocytes Percent Auto 8.7 % (18.3-44.2); Mean Corpuscular HGB Conc 33.7 g/dl (32-36); Mean Corpuscular Hemoglobin 28.2 pg (26-34); Mean Corpuscular Volume 83.8 fl (80-100); Mean Platelet Volume 10.5 fl (7.4-10.4); Monocytes Absolute Auto 0.3 K/mm3 (0.1-0.6); Monocytes Percent Auto 5.1 % (2.6-8.5); Neutrophils Absolute Auto 5.5 K/mm3 (1.3-6.7); Neutrophils Percent Auto 85.1 % (45.5-73.1); Platelet Count Result 197 k/mm3 (150-375); Red Blood Count 4.32 M/mm3 (4.6-6.20); Red Cell Distribution Width 14.1 % (11.5-14.5); White Blood Count 6.5 K/mm3 (4.5-10.0)
[2020-02-18 06:43] LABS: D Dimer 1.08 ug/mL (<0.48)
[2020-02-18 06:45] LABS: Alanine Aminotransferase 36 U/L (4-50); Albumin Level 3.2 g/dL (3.5-5.1); Alkaline Phosphatase 45 U/L (38-126); Anion Gap 8 mmol/L (8-16); Aspartate Amino Transferase 51 U/L (17-59); Bilirubin,Total 0.6 mg/dL (0.2-1.3); Blood Urea Nitrogen 35 mg/dL (9-20); Calcium 8.7 mg/dL (8.4-10.2); Carbon Dioxide 28 mmol/L (22-30); Chloride 104 mmol/L (98-107); Estimated CRCL calculation 53 ml/min; Estimated Glomerular Filt Rate > 60; Glucose 133 mg/dL (75-110); Magnesium 2.1 mg/dL (1.6-2.3); Potassium 3.6 mmol/L (3.4-5.0); Sodium 140 mmol/L (137-145)
[2020-02-18] MEDS: atenoloL 50 MG TABLET PO ×2 (08:36→20:22)
[2020-02-18] MEDS: ENOXAPARIN 40 MG/0.4 ML SYRINGE SUB-Q ×2 (08:37→20:23)
[2020-02-18] MEDS: hydroCHLOROthiazide 12.5 MG CAPSULE PO (08:38)
[2020-02-18] MEDS: lisinopriL 20 MG TABLET PO (08:38)
[2020-02-18] MEDS: DEXAMETHASONE SOD PHOS INJ 4 MG/ML VIAL 6 MG IV PUSH (08:38)
[2020-02-18] MEDS: MULTIVITAMINS /C LUTEIN (CENTRUM SILVER) TABLET *BKC 1 TAB PO (08:39)
[2020-02-18] MEDS: PANTOPRAZOLE 40 MG TABLET PO (08:40)
[2020-02-18] MEDS: THERAPEUTIC MULTIVITAMINS/MINERALS TAB (*BKC) 1 TABLET PO (08:40)
[2020-02-18] MEDS: REMDESIVIR 100 MG/NS 250 ML 100 MG/250 ML BAG 250 MG IVPB (10:09)
--- NOTE | 2020-02-18 16:03 | PM.IMPN ---
Progress Note: A&P Assessment and Plan (1) Pneumonia due to 2019 novel coronavirus: Code(s): U07.1 - COVID-19; J12.89 - Other viral pneumonia Status: Acute Assessment and Plan: The patient started having symptoms about 10 days ago and tested positive for COVID a week ago -he continues to require oxygen and is currently on 6 L. Will wean that -continue Remdesivir, Decadron and Lovenox (2) HTN (hypertension): Code(s): I10 - Essential (primary) hypertension Status: Chronic Assessment and Plan: Last blood pressure 122/73 - Continue Norvasc, atenolol, hydralazine and lisinopril. (3) Acute respiratory failure with hypoxia: Code(s): J96.01 - Acute respiratory failure with hypoxia Status: Acute Assessment and Plan: Secondary to COVID-19 -wean oxygen as tolerated Time Spent With Patient Time with patient: 25 - 35 minutes Subjective Date/time seen: 02/18/20 16:03 Interval history: Pt is a 84-year-old male here for COVID-19 pneumonia. Patient was seen today and states he feels the same as yesterday. He has no shortness of breath and he has been walking to the bathroom and back and does not have dyspnea on exertion. He says his cough is minimal. His appetite is low but it is improving. He denies nausea, vomiting, fevers, chills, chest pain, or leg swelling. Review of Systems Review of Systems: All systems reviewed & are unremarkable except as noted in HPI and below Exam Narrative: Exam Narrative: General: Well developed well nourished patient in NAD HEENT: normocephalic Neck: supple Neuro: Alert and oriented x4 CV:RRR Resp:CTA Abd: Soft, non distended. No pain to palpation. Positive bowel sounds Extremities: No swelling, erythema, or pain to palpation. Objective Data Vital Signs Vital Signs: Vital Signs - 24 hr 02/17/20 20:00 02/17/20 20:25 02/17/20 23:53 Temperature 97.3 F L 97.0 F L Pulse Rate 87 80 54 L Respiratory Rate 20 20 Blood Pressure 129/80 125/71 Pulse Oximetry 94 98 02/18/20 00:00 02/18/20 04:00 02/18/20 08:00 Temperature 97.0 F L 98.2 F Pulse Rate 64 68 66 Respiratory Rate 20 16 Blood Pressure 128/79 129/69 Pulse Oximetry 95 94 02/18/20 12:00 Temperature 98.4 F Pulse Rate 71 Respiratory Rate 16 Blood Pressure 122/73 Pulse Oximetry 93 Intake/Output Intake/Output: Intake & Output 02/15/20 02/16/20 02/17/20 02/18/20 23:59 23:59 23:59 23:59 Intake Total 1200 1260 Output Total 300 250 Balance 900 1010 Meds/Results Medications: Active Medications Generic Name Dose Route Start Last Admin Trade Name Freq PRN Reason Stop Dose Admin Amlodipine Besylate 5 mg 02/17/20 18:00 02/17/20 18:49 Amlodipine Besylate 5 Mg Tablet PO 5 mg QPM LISA Administration Aspirin 325 mg 02/17/20 18:00 02/17/20 18:49 Aspirin 325 Mg Tablet PO 325 mg QPM LISA Administration Atenolol 50 mg 02/17/20 21:00 02/18/20 08:36 Atenolol 50 Mg Tablet PO 50 mg Q12HR LISA Administration Dexamethasone Sodium Phosphate 6 mg 02/18/20 09:00 02/18/20 08:38 Dexamethasone Sod Phos Inj 4 Mg/Ml Vial IV PUSH 02/27/20 09:01 6 mg DAILY LISA Administration Enoxaparin Sodium 40 mg 02/18/20 21:00 Enoxaparin 40 Mg/0.4 Ml Syringe SUB-Q Q12HR LISA Hydrochlorothiazide 12.5 mg 02/18/20 09:00 02/18/20 08:38 Hydrochlorothiazide 12.5 Mg Capsule PO 12.5 mg DAILY LISA Administration Remdesivir 100 mg in 250 mls @ 250 mls/hr 02/18/20 10:00 02/18/20 10:09 IVPB 02/21/20 10:01 250 mls/hr Q24H LISA Administration Lisinopril 20 mg 02/18/20 09:00 02/18/20 08:38 Lisinopril 20 Mg Tablet PO 20 mg DAILY LISA Administration Multivitamins/Calcium 1 tablet 02/18/20 09:00 02/18/20 08:40 Therapeutic Multivitamins/Minerals Tab (*Bkc) PO 1 tablet DAILY LISA Administration Multivitamins/Minerals 1 tab 02/18/20 09:00 12/22/20 08:39 Multivitamins /C Lutein (Nereyda
[2020-02-18] MEDS: ASPIRIN 325 MG TABLET PO (18:29)
[2020-02-18] MEDS: amLODIPine BESYLATE 5 MG TABLET PO (18:29)
[2020-02-19] VITALS (9 sets, daily range): BP systolic 109–137; BP diastolic 61–77; PULSE 58–75; RESP 18–20; TEMP 36.2–37.3; O2SAT 92–97
[2020-02-19 06:53] LABS: Hemoglobin 11.7 g/dL (14.0-18.0); Mean Corpuscular HGB Conc 33.4 g/dl (32-36); Mean Corpuscular Hemoglobin 27.9 pg (26-34); Mean Corpuscular Volume 83.3 fl (80-100); Mean Platelet Volume 10.6 fl (7.4-10.4); Platelet Count Result 236 k/mm3 (150-375); Red Cell Distribution Width 13.7 % (11.5-14.5); White Blood Count 8.1 K/mm3 (4.5-10.0)
[2020-02-19 07:13] LABS: Alanine Aminotransferase 47 U/L (4-50); Albumin Level 3.1 g/dL (3.5-5.1); Alkaline Phosphatase 45 U/L (38-126); Anion Gap 5 mmol/L (8-16); Aspartate Amino Transferase 57 U/L (17-59); Bilirubin,Total 0.6 mg/dL (0.2-1.3); Blood Urea Nitrogen 33 mg/dL (9-20); CRP 7.2 mg/dL (<1.0); Calcium 8.7 mg/dL (8.4-10.2); Carbon Dioxide 31 mmol/L (22-30); Chloride 104 mmol/L (98-107); Estimated CRCL calculation 59 ml/min; Estimated Glomerular Filt Rate > 60; Glucose 124 mg/dL (75-110); Lactate Dehydrogenase 711 U/L (313-618); Magnesium 2.1 mg/dL (1.6-2.3); Potassium 3.4 mmol/L (3.4-5.0); Sodium 140 mmol/L (137-145)
[2020-02-19] MEDS: THERAPEUTIC MULTIVITAMINS/MINERALS TAB (*BKC) 1 TABLET PO (09:02)
[2020-02-19] MEDS: lisinopriL 20 MG TABLET PO (09:02)
[2020-02-19] MEDS: MULTIVITAMINS /C LUTEIN (CENTRUM SILVER) TABLET *BKC 1 TAB PO (09:02)
[2020-02-19] MEDS: hydroCHLOROthiazide 12.5 MG CAPSULE PO (09:02)
[2020-02-19] MEDS: DEXAMETHASONE SOD PHOS INJ 4 MG/ML VIAL 6 MG IV PUSH (09:03)
[2020-02-19] MEDS: atenoloL 50 MG TABLET PO ×2 (09:03→20:11)
[2020-02-19] MEDS: PANTOPRAZOLE 40 MG TABLET PO (09:03)
[2020-02-19] MEDS: ENOXAPARIN 40 MG/0.4 ML SYRINGE SUB-Q ×2 (09:25→20:11)
[2020-02-19] MEDS: REMDESIVIR 100 MG/NS 250 ML 100 MG/250 ML BAG 250 MG IVPB (10:54)
--- NOTE | 2020-02-19 14:41 | PM.IMPN ---
Progress Note: A&P Assessment and Plan (1) Pneumonia due to 2019 novel coronavirus: Code(s): U07.1 - COVID-19; J12.89 - Other viral pneumonia Status: Acute Assessment and Plan: The patient started having symptoms about 11 days ago and tested positive for COVID a week ago -he continues to require oxygen and is currently on 4 L. Will continue to wean that -continue Remdesivir, Decadron and Lovenox (2) HTN (hypertension): Code(s): I10 - Essential (primary) hypertension Status: Chronic Assessment and Plan: Last blood pressure 115/61 - Continue Norvasc, atenolol, hydralazine and lisinopril. (3) Acute respiratory failure with hypoxia: Code(s): J96.01 - Acute respiratory failure with hypoxia Status: Acute Assessment and Plan: Secondary to COVID-19 -wean oxygen as tolerated (4) Bigeminy: Code(s): I49.8 - Other specified cardiac arrhythmias Status: Acute Assessment and Plan: Noted on telemetry 02/18/20 -potassium 3.4 today, will replace -magnesium normal -would recommend echo outpatient once he recovers -no reports of chest pain Subjective Date/time seen: 02/19/20 14:41 Interval history: Pt is a 84-year-old male here for COVID-19 pneumonia. Patient was seen today and thinks he is doing well. He does not have any shortness of breath at rest or when walking to the bathroom. He is still not eating much and skipped lunch today. He states that he has no chest pain or palpitations. He reports no history of cardiac disease. I did talk to him about obtaining echo at discharge. He states he does physical therapy at home for his shoulder per Exam Narrative: Exam Narrative: General: Well developed well nourished patient in NAD HEENT: normocephalic Neck: supple Neuro: Alert and oriented x4 CV:RRR. Telemetry shows occasional PVCs but no bigeminy today Resp:CTA Abd: Soft, non distended. No pain to palpation. Positive bowel sounds Extremities: No swelling, erythema, or pain to palpation. Objective Data Vital Signs Vital Signs: Vital Signs - 24 hr 02/18/20 16:00 02/18/20 20:00 02/18/20 20:22 Temperature 97.4 F L 98 F Pulse Rate 70 69 72 Respiratory Rate 16 20 Blood Pressure 132/75 117/84 Pulse Oximetry 96 97 02/19/20 00:00 02/19/20 04:00 02/19/20 05:00 Temperature 98.2 F 98.3 F Pulse Rate 62 61 70 Respiratory Rate 20 20 Blood Pressure 109/77 124/70 Pulse Oximetry 97 92 02/19/20 06:01 02/19/20 08:00 02/19/20 12:00 Temperature 97.8 F 98.1 F Pulse Rate 58 L 72 Respiratory Rate 18 18 Blood Pressure 112/71 115/61 Pulse Oximetry 94 94 93 Intake/Output Intake/Output: Intake & Output 02/16/20 02/17/20 02/18/20 02/19/20 23:59 23:59 23:59 23:59 Intake Total 1200 2660 730 Output Total 300 250 425 Balance 900 2410 305 Meds/Results Medications: Active Medications Generic Name Dose Route Start Last Admin Trade Name Scottieq PRN Reason Stop Dose Admin Amlodipine Besylate 5 mg 02/17/20 18:00 02/18/20 18:29 Amlodipine Besylate 5 Mg Tablet PO 5 mg QPM LISA Administration Aspirin 325 mg 02/17/20 18:00 02/18/20 18:29 Aspirin 325 Mg Tablet PO 325 mg QPM LISA Administration Atenolol 50 mg 02/17/20 21:00 02/19/20 09:03 Atenolol 50 Mg Tablet PO 50 mg Q12HR LISA Administration Dexamethasone Sodium Phosphate 6 mg 02/18/20 09:00 02/19/20 09:03 Dexamethasone Sod Phos Inj 4 Mg/Ml Vial IV PUSH 02/27/20 09:01 6 mg DAILY LISA Administration Enoxaparin Sodium 40 mg 02/18/20 21:00 02/19/20 09:25 Enoxaparin 40 Mg/0.4 Ml Syringe SUB-Q 40 mg Q12HR LISA Administration Hydrochlorothiazide 12.5 mg 02/18/20 09:00 02/19/20 09:02 Hydrochlorothiazide 12.5 Mg Capsule PO 12.5 mg DAILY LISA Administration Remdesivir 100 mg in 250 mls @ 250 mls/hr 02/18/20 10:00 02/19/20 10:54 IVPB 02/21/20 10:01 250 mls/hr Q24H LISA Administration
[2020-02-19] MEDS: POTASSIUM CHLORIDE 20 MEQ TABLET 40 MEQ PO (15:27)
[2020-02-19] MEDS: ASPIRIN 325 MG TABLET PO (17:48)
[2020-02-19] MEDS: amLODIPine BESYLATE 5 MG TABLET PO (17:48)
[2020-02-20] VITALS (9 sets, daily range): BP systolic 126–143; BP diastolic 68–78; PULSE 59–75; RESP 16–20; TEMP 36.4–37.4; O2SAT 92–98
[2020-02-20 06:40] LABS: Hematocrit 35.1 % (42.0-52.0); Hemoglobin 11.9 g/dL (14.0-18.0); Mean Corpuscular HGB Conc 33.9 g/dl (32-36); Mean Corpuscular Hemoglobin 28.5 pg (26-34); Mean Platelet Volume 10.5 fl (7.4-10.4); Platelet Count Result 275 k/mm3 (150-375); Red Blood Count 4.18 M/mm3 (4.6-6.20); Red Cell Distribution Width 13.8 % (11.5-14.5); White Blood Count 7.2 K/mm3 (4.5-10.0)
[2020-02-20 07:28] LABS: Alanine Aminotransferase 70 U/L (4-50); Anion Gap 4 mmol/L (8-16); Blood Urea Nitrogen 34 mg/dL (9-20); Calcium 8.7 mg/dL (8.4-10.2); Carbon Dioxide 30 mmol/L (22-30); Chloride 107 mmol/L (98-107); Estimated CRCL calculation 59 ml/min; Estimated Glomerular Filt Rate > 60; Glucose 112 mg/dL (75-110); Potassium 3.8 mmol/L (3.4-5.0); Sodium 141 mmol/L (137-145)
[2020-02-20] MEDS: hydroCHLOROthiazide 12.5 MG CAPSULE PO (09:14)
[2020-02-20] MEDS: atenoloL 50 MG TABLET PO ×2 (09:14→21:22)
[2020-02-20] MEDS: MULTIVITAMINS /C LUTEIN (CENTRUM SILVER) TABLET *BKC 1 TAB PO (09:14)
[2020-02-20] MEDS: PANTOPRAZOLE 40 MG TABLET PO (09:14)
[2020-02-20] MEDS: DEXAMETHASONE SOD PHOS INJ 4 MG/ML VIAL 6 MG IV PUSH (09:14)
[2020-02-20] MEDS: lisinopriL 20 MG TABLET PO (09:14)
[2020-02-20] MEDS: ENOXAPARIN 40 MG/0.4 ML SYRINGE SUB-Q ×2 (09:14→21:23)
[2020-02-20] MEDS: THERAPEUTIC MULTIVITAMINS/MINERALS TAB (*BKC) 1 TABLET PO (09:14)
[2020-02-20] MEDS: REMDESIVIR 100 MG/NS 250 ML 100 MG/250 ML BAG 250 MG IVPB (10:40)
--- NOTE | 2020-02-20 15:06 | PM.IMPN ---
Progress Note: A&P Assessment and Plan (1) Pneumonia due to 2019 novel coronavirus: Code(s): U07.1 - COVID-19; J12.89 - Other viral pneumonia Status: Acute Assessment and Plan: The patient started having symptoms about 12 days ago and tested positive for COVID a week ago -he continues to require oxygen and is currently on 3 L. Will continue to wean that -continue Remdesivir, Decadron and Lovenox -chest x-ray tomorrow (2) HTN (hypertension): Code(s): I10 - Essential (primary) hypertension Status: Chronic Assessment and Plan: Last blood pressure 143/78 - Continue Norvasc, atenolol, hydralazine and lisinopril. (3) Acute respiratory failure with hypoxia: Code(s): J96.01 - Acute respiratory failure with hypoxia Status: Acute Assessment and Plan: Secondary to COVID-19 -wean oxygen as tolerated (4) Bigeminy: Code(s): I49.8 - Other specified cardiac arrhythmias Status: Acute Assessment and Plan: Noted on telemetry 02/18/20 -high potassium and magnesium normal -would recommend echo outpatient once he recovers -no reports of chest pain Subjective Date/time seen: 02/20/20 15:06 Interval history: Pt is a 84-year-old male here for COVID-19 pneumonia. Patient was seen today and thinks he is doing well. He does not have any shortness of breath at rest or when walking to the bathroom. He states that he has no chest pain or palpitations. He reports no history of cardiac disease. He does not think he needs physical therapy Exam Narrative: Exam Narrative: General: Well developed well nourished patient in NAD HEENT: normocephalic Neck: supple Neuro: Alert and oriented x4 CV:RRR. Telemetry shows occasional PVCs but no bigeminy today Resp:CTA Abd: Soft, non distended. No pain to palpation. Positive bowel sounds Extremities: No swelling, erythema, or pain to palpation. Objective Data Vital Signs Vital Signs: Vital Signs - 24 hr 02/19/20 16:00 02/19/20 20:00 02/19/20 20:11 Temperature 97.2 F L 99.1 F Pulse Rate 62 72 71 Respiratory Rate 20 20 Blood Pressure 137/64 131/70 Pulse Oximetry 95 95 12/24/20 00:00 02/20/20 04:00 02/20/20 08:00 Temperature 99.3 F 98.1 F 98.3 F Pulse Rate 66 66 59 L Respiratory Rate 20 20 20 Blood Pressure 126/74 131/73 136/77 Pulse Oximetry 98 98 92 02/20/20 12:02 Temperature 97.6 F Pulse Rate 64 Respiratory Rate 20 Blood Pressure 143/78 H Pulse Oximetry 92 Intake/Output Intake/Output: Intake & Output 02/17/20 02/18/20 02/19/20 02/20/20 23:59 23:59 23:59 23:59 Intake Total 1200 2660 1695 930 Output Total 300 250 875 Balance 900 2410 820 930 Meds/Results Medications: Active Medications Generic Name Dose Route Start Last Admin Trade Name Freq PRN Reason Stop Dose Admin Amlodipine Besylate 5 mg 02/17/20 18:00 02/19/20 17:48 Amlodipine Besylate 5 Mg Tablet PO 5 mg QPM LISA Administration Aspirin 325 mg 02/17/20 18:00 02/19/20 17:48 Aspirin 325 Mg Tablet PO 325 mg QPM LISA Administration Atenolol 50 mg 02/17/20 21:00 02/20/20 09:14 Atenolol 50 Mg Tablet PO 50 mg Q12HR LISA Administration Dexamethasone Sodium Phosphate 6 mg 02/18/20 09:00 02/20/20 09:14 Dexamethasone Sod Phos Inj 4 Mg/Ml Vial IV PUSH 02/27/20 09:01 6 mg DAILY LISA Administration Enoxaparin Sodium 40 mg 02/18/20 21:00 02/20/20 09:14 Enoxaparin 40 Mg/0.4 Ml Syringe SUB-Q 40 mg Q12HR LISA Administration Hydrochlorothiazide 12.5 mg 02/18/20 09:00 02/20/20 09:14 Hydrochlorothiazide 12.5 Mg Capsule PO 12.5 mg DAILY LISA Administration Remdesivir 100 mg in 250 mls @ 250 mls/hr 02/18/20 10:00 02/20/20 11:40 IVPB 02/21/20 10:01 Infused Q24H LISA Infusion Lisinopril 20 mg 02/18/20 09:00 02/20/20 09:14 Lisinopril 20 Mg Tablet PO 20 mg DAILY LISA Administration Melatonin 3 mg 02/20/20 21:00 Melatonin 3 Mg Tablet
[2020-02-20] MEDS: ASPIRIN 325 MG TABLET PO (17:55)
[2020-02-20] MEDS: amLODIPine BESYLATE 5 MG TABLET PO (17:55)
[2020-02-20] MEDS: MELATONIN 3 MG TABLET PO (21:22)
[2020-02-21] VITALS (10 sets, daily range): BP systolic 124–147; BP diastolic 70–86; PULSE 63–74; RESP 14–20; TEMP 36.6–37.2; O2SAT 91–97
[2020-02-21] MEDS: atenoloL 50 MG TABLET PO ×2 (07:56→20:14)
[2020-02-21] MEDS: MULTIVITAMINS /C LUTEIN (CENTRUM SILVER) TABLET *BKC 1 TAB PO (07:56)
[2020-02-21] MEDS: ENOXAPARIN 40 MG/0.4 ML SYRINGE SUB-Q ×2 (07:56→20:14)
[2020-02-21] MEDS: DEXAMETHASONE SOD PHOS INJ 4 MG/ML VIAL 6 MG IV PUSH (08:08)
[2020-02-21] MEDS: THERAPEUTIC MULTIVITAMINS/MINERALS TAB (*BKC) 1 TABLET PO (08:09)
[2020-02-21] MEDS: hydroCHLOROthiazide 12.5 MG CAPSULE PO (08:09)
[2020-02-21] MEDS: PANTOPRAZOLE 40 MG TABLET PO (08:09)
[2020-02-21] MEDS: lisinopriL 20 MG TABLET PO (08:09)
[2020-02-21 08:54] LABS: Alanine Aminotransferase 111 U/L (4-50); Alkaline Phosphatase 44 U/L (38-126); Anion Gap 6 mmol/L (8-16); Aspartate Amino Transferase 88 U/L (17-59); Bilirubin,Total 0.7 mg/dL (0.2-1.3); Blood Urea Nitrogen 35 mg/dL (9-20); Calcium 8.7 mg/dL (8.4-10.2); Carbon Dioxide 32 mmol/L (22-30); Chloride 102 mmol/L (98-107); Estimated CRCL calculation 59 ml/min; Estimated Glomerular Filt Rate > 60; Glucose 103 mg/dL (75-110); Potassium 3.8 mmol/L (3.4-5.0); Sodium 140 mmol/L (137-145)
[2020-02-21 09:17] LABS: CRP 2.3 mg/dL (<1.0); Lactate Dehydrogenase 732 U/L (313-618)
--- NOTE | 2020-02-21 11:03 | PM.IMPN ---
Progress Note: A&P Assessment and Plan (1) Pneumonia due to 2019 novel coronavirus: Code(s): U07.1 - COVID-19; J12.89 - Other viral pneumonia Status: Acute Assessment and Plan: The patient started having symptoms about 2 weeks ago and was positive at [facility] -he continues to require oxygen and is currently on 2 L. Will continue to wean that -continue Decadron and Lovenox -last dose of Remdesivir stopped due to increasing liver enzymes -repeat chest x-ray reviewed, slight worsening but clinically the patient is doing better (2) HTN (hypertension): Code(s): I10 - Essential (primary) hypertension Status: Chronic Assessment and Plan: Last blood pressure 147/86 - Continue Norvasc, atenolol, hydralazine and lisinopril. (3) Acute respiratory failure with hypoxia: Code(s): J96.01 - Acute respiratory failure with hypoxia Status: Acute Assessment and Plan: Secondary to COVID-19 -wean oxygen as tolerated (4) Bigeminy: Code(s): I49.8 - Other specified cardiac arrhythmias Status: Acute Assessment and Plan: Noted on telemetry 02/18/20 -potassium and magnesium normal -would recommend echo outpatient once he recovers -no reports of chest pain Subjective Date/time seen: 02/21/20 11:03 Interval history: Pt is a 84-year-old male here for COVID-19 pneumonia. Patient was seen today and thinks he is doing well. He does not have any shortness of breath at rest or when walking to the bathroom. He states that he has no chest pain or palpitations. He reports no history of cardiac disease. He does not think he needs physical therapy and is now independent walking to the bathroom. No problems overnight, but he is still not sleeping because people are always waking him up. Exam Narrative: Exam Narrative: General: Well developed well nourished patient in NAD HEENT: normocephalic Neck: supple Neuro: Alert and oriented x4 CV:RRR. Resp:CTA Abd: Soft, non distended. No pain to palpation. Positive bowel sounds Extremities: No swelling, erythema, or pain to palpation. Objective Data Vital Signs Vital Signs: Vital Signs - 24 hr 02/20/20 12:02 02/20/20 15:49 02/20/20 15:51 Temperature 97.6 F Pulse Rate 64 Respiratory Rate 20 Blood Pressure 143/78 H Pulse Oximetry 92 94 92 02/20/20 16:00 02/20/20 20:00 02/20/20 21:22 Temperature 98.6 F 98.6 F Pulse Rate 70 75 75 Respiratory Rate 20 16 Blood Pressure 131/73 134/68 Pulse Oximetry 94 94 02/21/20 00:00 02/21/20 04:00 02/21/20 07:56 Temperature 98.9 F 98.1 F Pulse Rate 74 67 66 Respiratory Rate 16 16 Blood Pressure 124/82 132/77 Pulse Oximetry 97 93 02/21/20 08:00 Temperature 98.1 F Pulse Rate 63 Respiratory Rate 16 Blood Pressure 147/86 H Pulse Oximetry 91 Intake/Output Intake/Output: Intake & Output 02/18/20 02/19/20 02/20/20 02/21/20 23:59 23:59 23:59 23:59 Intake Total 2660 1695 1370 200 Output Total 250 875 Balance 2410 820 1370 200 Meds/Results Medications: Active Medications Generic Name Dose Route Start Last Admin Trade Name Freq PRN Reason Stop Dose Admin Amlodipine Besylate 5 mg 02/17/20 18:00 02/20/20 17:55 Amlodipine Besylate 5 Mg Tablet PO 5 mg QPM LISA Administration Aspirin 325 mg 02/17/20 18:00 02/20/20 17:55 Aspirin 325 Mg Tablet PO 325 mg QPM LISA Administration Atenolol 50 mg 02/17/20 21:00 02/21/20 07:56 Atenolol 50 Mg Tablet PO 50 mg Q12HR LISA Administration Dexamethasone Sodium Phosphate 6 mg 02/18/20 09:00 02/21/20 08:08 Dexamethasone Sod Phos Inj 4 Mg/Ml Vial IV PUSH 02/27/20 09:01 6 mg DAILY LISA Administration Enoxaparin Sodium 40 mg 02/18/20 21:00 02/21/20 07:56 Enoxaparin 40 Mg/0.4 Ml Syringe SUB-Q 40 mg Q12HR LISA Administration Hydrochlorothiazide 12.5 mg 02/18/20 09:00 02/21/20 08:09 Hydrochlorothiazide 12.5 Mg Capsule PO 12.5 mg
[2020-02-21] MEDS: amLODIPine BESYLATE 5 MG TABLET PO (17:00)
[2020-02-21] MEDS: ASPIRIN 325 MG TABLET PO (17:00)
[2020-02-21] MEDS: MELATONIN 3 MG TABLET PO (20:14)
[2020-02-22] VITALS (8 sets, daily range): BP systolic 119–161; BP diastolic 77–81; PULSE 59–74; RESP 16–20; TEMP 36.5–37; O2SAT 90–95
[2020-02-22 06:29] LABS: Alanine Aminotransferase 121 U/L (4-50); Albumin Level 3.1 g/dL (3.5-5.1); Alkaline Phosphatase 41 U/L (38-126); Aspartate Amino Transferase 83 U/L (17-59); Bilirubin,Total 0.7 mg/dL (0.2-1.3)
[2020-02-22] MEDS: ENOXAPARIN 40 MG/0.4 ML SYRINGE SUB-Q (10:03)
[2020-02-22] MEDS: MULTIVITAMINS /C LUTEIN (CENTRUM SILVER) TABLET *BKC 1 TAB PO (10:03)
[2020-02-22] MEDS: lisinopriL 20 MG TABLET PO (10:04)
[2020-02-22] MEDS: hydroCHLOROthiazide 12.5 MG CAPSULE PO (10:04)
[2020-02-22] MEDS: DEXAMETHASONE SOD PHOS INJ 4 MG/ML VIAL 6 MG IV PUSH (10:04)
[2020-02-22] MEDS: PANTOPRAZOLE 40 MG TABLET PO (10:04)
[2020-02-22] MEDS: THERAPEUTIC MULTIVITAMINS/MINERALS TAB (*BKC) 1 TABLET PO (10:04)
[2020-02-22] MEDS: atenoloL 50 MG TABLET PO (10:04)
--- NOTE | 2020-02-22 11:58 | PM.DS ---
DS: Admitting Diagnosis Admitting Diagnosis Admitting Diagnosis: Cover pneumonia DS: Discharge Diagnosis Discharge Diagnosis (1) Pneumonia due to 2019 novel coronavirus: Code(s): U07.1 - COVID-19; J12.89 - Other viral pneumonia Status: Acute Assessment and Plan: Patient required oxygen throughout his stay but improved with treatment -he received Decadron and Lovenox up until discharge -he was on Remdesivir for 4 days but this was stopped due to increasing liver enzymes (2) HTN (hypertension): Code(s): I10 - Essential (primary) hypertension Status: Chronic Assessment and Plan: Last blood pressure 161/81 which is quite higher than his average while hospitalized - Continue Norvasc, atenolol, hydralazine and lisinopril at home. (3) Acute respiratory failure with hypoxia: Code(s): J96.01 - Acute respiratory failure with hypoxia Status: Acute Assessment and Plan: Resolved, secondary to COVID-19 (4) Bigeminy: Code(s): I49.8 - Other specified cardiac arrhythmias Status: Acute Assessment and Plan: Brief episodes Noted on telemetry 02/18/20 but not noted thereafter -potassium and magnesium normal -would recommend echo outpatient once he recovers -no reports of chest pain recently, no history of heart disease, no history of dyspnea on exertion prior to COVID-19 -patient appears to be low risk, would recommend echo outpatient. I am going to call his primary care physician Dr. Acosta about this -continue atenolol (5) Transaminitis: Code(s): R74.01 - Elevation of levels of liver transaminase levels Status: Acute Assessment and Plan: Mild, Could be due to infection or Remdesivir -repeat outpatient in 2 weeks -will speak to PCP about this DS: Summary Hospital Course Reason for hospitalization: COVID-19 Hospital Course: Patient is a 84-year-old male COVID symptoms for about a week for shortness of breath and weakness. Vitals in the ER were temperature 99.5?, pulse 120, respiratory rate 30, blood pressure 128/68, pulse ox 85 on room air. Chest x-ray showed bilateral airspace disease consistent with COVID-19. Patient was admitted to the hospitalist service and started on Remdesivir, Lovenox and Decadron as well as supplemental oxygen. The patient was hospitalized from 02/17/20-02/22/20 and improved greatly. The day of discharge she felt back to baseline. During his stay, he briefly had episode of bigeminy which had no symptoms. This improved with improvement of the COVID-19. He had no prior symptoms of chest pain or dyspnea on exertion prior to COVID-19. He is on atenolol at home will be continued on this. I am going to call his primary care physician and once he has recovered from COVID I suggest he undergo an echo. The patient also had elevated liver enzymes after starting Remdesivir which could be from the medication or the virus itself. I recommend that he get these recheck outpatient and I will talk to Dr. Acosta about this as well when I call him on Monday about the echo. Overall, the patient had a lot of improvement and was ready for discharge. Patient was educated about the worrisome signs and symptoms to go back to the emergency room for and was discharged in stable condition. Status at Discharge Functional status at discharge: independent ambulation Overall status at discharge: patient is back to baseline Time Spent with Patient Time attestation: Total time spent providing and/or coordinating discharge services:36 min Exam Narrative: Exam Narrative: General: Well developed well nourished patient in NAD HEENT: normocephalic Neck: supple Neuro: Alert and oriented x4 CV:RRR. Resp:CTA Abd: Soft, non distended. No pain to palpation. Positive bowel sounds Extremities: No swelling, erythema, or pain to palpation. DS: Data Data Completed and Pending Labs on day of discharge: Labs from last 24 hours
--- NOTE | 2020-02-22 14:04 | PCRCNOTE ---
Pt does not qualify for home oxygen.
== END 2020-02-22 15:35 | disposition home or self-care (01) | DRG 177 ==
LOC: ANHED 12:52 → ANH3MEDSUR 15:41
PROVIDERS: Nurse Practitioner; Physician Assistant; Admitting Provider Family Medicine; Emergency Provider Emergency Medicine; PCP Family Medicine; Visit Provider Physician Assistant
DX: U07.1 COVID-19 (principal); J12.89 Other viral pneumonia; J96.01 Acute respiratory failure with hypoxia; I49.8 Other specified cardiac arrhythmias; I10 Essential (primary) hypertension; R74.01 Elevation of levels of liver transaminase levels; Z85.46 Personal history of malignant neoplasm of prostate; Z79.899 Other long term (current) drug therapy; Z88.0 Allergy status to penicillin
CPT/HCPCS: 36415; 36600; 71045; 80048; 80053; 80076; 82375; 82728; 82805; 83050; 83605; 83615; 83735; 84443; 84460; 85025; 85027; 85380; 85610; 85730; 86140; 93005; 94618; 96361; 96374; 99285; A9270; J1100; J1650; J7030

== ENCOUNTER 2020-04-22 08:48 | Outpatient (CLI) | payer MEDICARE, SELFPAY ==
--- NOTE | 2020-04-22 08:54 | ECHO_ITS ---
Patient Info Name: Angelo Hickman Age: 84 years : 1935 Gender: Male Ht: 69 in Wt: 199 lbs BSA: 2.12 m2 HR: 70 bpm BP: 140 / 90 mmHg Heart Rhythm: Sinus Arrhythmia Technical Quality: Good Exam Date: 04/22/2020 9:16 AM Exam Location: [facility] Patient Status: Outpatient Admit Date: 04/22/2020 Staff Ordering Physician: Jose Alfredo Acosta MD Job Coaching: [place] RDCS Attending Provider: Jose Alfredo Acosta MD Referring Physician: Dave VILLAR; Exam Type: CA echo doppler color flow Study Info Indications I49.9 - Cardiac arrhythmia, unspecified Complete two-dimensional, color flow and Doppler transthoracic echocardiogram is performed. Strain analysis performed. History/Risk Factors Arrhythmia, Covid+ 01/2020. Summary 1. Complete two-dimensional, color flow and Doppler transthoracic echocardiogram is performed. 2. Left ventricular chamber dimension is normal. 3. Left ventricular systolic function is normal, estimated at 65-70%. 4. There is mildly increased left ventricular wall thickness. 5. The left ventricular diastolic function is grade I diastolic dysfunction. 6. E/e' 10 is mildly elevated. 7. Global longitudinal strain is mildly abnormal at -16.3%. 8. Left atrial chamber dimension is moderately enlarged. 9. There is mild aortic valve sclerosis. 10. There is mild mitral valve regurgitation. 11. There is trace tricuspid valve regurgitation. 12. Mild pulmonary hypertension, estimated pulmonary arterial systolic pressure is 49 mmHg. Left Ventricle E/e' 10 is mildly elevated. Global longitudinal strain is mildly abnormal at -16.3%. Left ventricular chamber dimension is normal. Left ventricular systolic function is normal, estimated at 65-70%. There is mildly increased left ventricular wall thickness. The left ventricular diastolic function is grade I diastolic dysfunction. Right Ventricle Right ventricular chamber dimension is normal. Right ventricular systolic function is normal. Left Atria Left atrial chamber dimension is moderately enlarged. Right Atria Right atrial chamber dimension is normal. Aortic Valve The aortic valve is trileaflet. There is mild aortic valve sclerosis. There is no aortic valve stenosis. There is no aortic valve regurgitation. Pulmonic Valve There is no pulmonic regurgitation. Mitral Valve There is no mitral valve stenosis. There is mild mitral valve regurgitation. Tricuspid Valve There is trace tricuspid valve regurgitation. Mild pulmonary hypertension, estimated pulmonary arterial systolic pressure is 49 mmHg. Pericardium/Pleural There is no pericardial effusion. Inferior Vena Cava Normal inferior vena cava with >50% collapse upon inspiration consistent with normal right atrial pressure, 5 mmHg. Aorta The aortic root size at the sinus of Valsalva is normal. Left Ventricular Outflow Tract Name Value Normal LVOT 2D LVOT Diameter 2.2 cm LVOT Doppler LVOT Peak Gradient 3 mmHg LVOT Mean Gradient 2 mmHg LVOT VTI
== END 2020-04-22 08:49 | disposition home or self-care (01) ==
PROVIDERS: PCP Family Medicine; Visit Provider Family Medicine
DX: I08.3 Combined rheumatic disorders of mitral, aortic and tricuspid valves (principal)
CPT/HCPCS: 93306

== ENCOUNTER → 2023-03-23 15:51 | Outpatient (CLI) | payer MEDICARE, SELFPAY ==
--- NOTE | ~2023-03-23 | XR_ITS ---
EXAMINATION: XR foot LT min 3V DATE: 03/23/2023 16:15 INDICATION: Gout, unspecified. TECHNIQUE: 4 views of left foot were obtained. COMPARISON: None. FINDINGS: Bone alignment is normal. No fracture. There is mild osteoarthritis of first and third meta tarsophalangeal joints and some of the interphalangeal joints and talonavicular joint. IMPRESSION: 1. Mild polyarticular osteoarthritis. Reviewed, dictated and finalized at location [facility]
== END ==
PROVIDERS: PCP Family Medicine; Visit Provider Family Medicine
DX: M19.072 Primary osteoarthritis, left ankle and foot (principal)
CPT/HCPCS: 73630